=== PATIENT | male | born 1990 | race Caucasian/White ===

== ENCOUNTER 2018-11-02 18:32 | Emergency (ER) | payer SELFPAY ==
[2018-11-02 18:42] VITALS: BP 125/67
[2018-11-02] MEDS ORDERED: LIDOCAINE HCL 1%/EPI. (1:100,000) MDV 20ML VIAL IJ ONE (18:49)
--- NOTE | 2018-11-02 18:50 | ED Physician Documentation ---
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 pt presents to the ED via POV c/o Right buttock abscess. pain is worse when sitting. 10 aching. denies fever or other symptoms or complaints. pt denies current chest pain, dyspnea, syncope/near syncope, headache, dizziness, visual disturbances, n/v/d, fever/chills, rash, sick contacts, dysuria, trauma. melena or hematochezia, bleeding or easy bruising, change in bowel or bladder function. anxiety or depression. ROS Negative unless otherwise specified. Onset: days ago (3), other Location: other (Left buttock medial. ) Quality: painful - ROS CONST: none. denies: recent illness, fever, sweating, chills CVS/RESP: denies: chest pain, shortness of breath, cough EYES/ENT: denies: eye redness, eye itching, sore throat, nasal drainage GI/: denies: abdominal pain, problems urinating, vomiting, nausea MS/SKIN/LYMPH: denies: calf pain, neck pain, joint pain, leg swelling, rash, swollen glands, leg pain, back pain, ankle swelling NEURO/PSYCH: denies: headache, fainting, dizziness, tingling, numbness, anxiety - PAST HX Past History: none Other History: none Surgeries/Procedures: No Allergies/Adverse Reactions: Allergies Allergy/AdvReac Type Severity Reaction Status Date / Time No Known Allergies Allergy Verified 11/02/18 18:43 Home Medications: Ambulatory Orders Medication Instructions Recorded NK 09/10/13 - SOCIAL HX Smoking History: greater than 1 pack/day Alcohol Use: none Drug Use: none - FAMILY HX Family History: none - VITAL SIGNS Vital Signs: Vital Signs Temp Pulse Resp BP Pulse Ox 97.8 F 100 H 16 125/67 100 11/02/18 18:40 11/02/18 18:40 11/02/18 18:40 11/02/18 18:40 11/02/18 18:40 - REVIEWED ASSESSMENTS Nursing Assessment Reviewed: Yes Vitals Reviewed: Yes Procedures Site: right buttock Blade Size: 11 I & D Procedure: betadine prep, sterile drapes applied, sterile dressing applied, gauze wick placed Progress: Verbal consent obtained. 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 Type: abscess Location details: Right Buttock Anesthesia: local infiltration Local anesthetic: lidocaine 1% with epinephrine Anesthetic total: 7 ml Patient sedated: no Scalpel size: 11 Incision type: single straight 1.5 cm Complexity: simple Drainage: purulent Drainage amount: moderate Wound treatment: packed Packing material: iodaform secured with tape externally Patient tolerance: Patient tolerated the procedure well with no complications. Advised pt to have wound closely monitored and follow up with provider next week for recheck or before if needed. understanding verbalized. ED Results Lab/Radiology - Orders Orders: ED Orders Category Date Time Status Lidocaine 1%/Epinephrine [Xylocaine 1%-EPI 1:100,000] Med 11/02/18 18:49 Once 5 ml IJ NOW ONE Abscess Physical Exam - EXAM General Appearance: no acute distress, alert Skin: warm,dry, tender indurated area (4 cm x 2 cm ). No: pointing fluctuant with erythema, pointing fluctuant with lymphangitis Location: other (Right medial upper external buttock. no contact with anus. ) Character: symmetric, linear, erythematous Symptoms: warmth, tenderness, swelling, induration Extremities: non-tender EENT: eyes nml inspection, lips nml, gums nml, pharynx nml Neck: trachea midline, no swelling Respiratory: no resp distress Neuro/Psych: oriented x3, motor nml, sensation nml, mood/affect nml Discharge Clincal Impression: Abscess Additional Instructions: doxycycline 100 mg twice a day for 10 days. Tylenol/ibuprofen for pain. keep clean and dry, do not scrub. do not soak in tub Follow up with primary care next week for recheck. It is important that this gets monitored closely. Monitor and seek care if fever, chills, increasing swelling, pain, or any concern. PLEASE UNDERSTAND THAT THIS IS AN EMERGENCY EVALUATION FOR YOUR COMPLAINT AND BY NATURE IS LIMITED AND NOT A SUBSTITUTE FOR ONGOING MEDICAL CARE. EVEN THOUGH TEST RESULTS AND TREATMENT PLAN WERE EXPLAINED THERE MAY BE A NEED FOR ADDITIONAL TESTING TO FULLY DETERMINE THE EXTENT OF YOUR ILLNESS/INJURY/OR CONCERN SO YOU SHOULD CONTACT AND OR ESTABLISH WITH A PRIMARY CARE PROVIDER (OR REFERRAL DOCTOR IF APPLICABLE) FOR AN APPOINTMENT SOON POSSIBLE Condition: Good Disposition: 01 HOME, SELF-CARE Decision to Admit: NO Date of Decison to Admit: 11/02/18 Decision Time: 19:34
[2018-11-02] MEDS ORDERED: DOXYCYCLINE 100 MG CAPSULE PO ONE (19:34)
[2018-11-02] MEDS ORDERED: HYDROcodone /APAP 5/325 1 EACH TABLET PO ONE (19:35)
== END 2018-11-02 19:57 | disposition home or self-care (01) ==
LOC: ED 18:32
DX: L02.31 Cutaneous abscess of buttock (principal); B96.89 Other specified bacterial agents as the cause of diseases classified elsewhere
CPT/HCPCS: 10061; 87070; 99283; A9270

== ENCOUNTER 2019-11-10 18:06 | Emergency (ER) | payer SELFPAY ==
--- NOTE | 2019-11-10 18:55 | ED Physician Documentation ---
General Adult - HISTORIAN Historian: patient - HPI Chief Complaint: General Adult Onset: days ago (7-10 days) Timing: worse Further Comments: yes (29 year old male patient presents with low back pain for the past 10 days. Has been taking tylenol "like candy" and using THC for pain. After further review of history, patient reports drainage and "bump" on his coccyx.) - ROS CONST: no problems EYES/ENT: none CVS/RESP: none GI/: none MS/SKIN/LYMPH: none NEURO/PSYCH: denies: headache - PAST HX Past History: other (previous pilonidial cyst) Allergies/Adverse Reactions: Allergies Allergy/AdvReac Type Severity Reaction Status Date / Time No Known Allergies Allergy Verified 11/10/19 18:31 Home Medications: Ambulatory Orders Medication Instructions Recorded Sulfamethoxazole/Trimethoprim 1 each PO BID #20 tab 11/10/19 [Bactrim Ds] - SOCIAL HX Smoking History: cigarettes Drug Use: marijuana - FAMILY HX Family History: No - VITAL SIGNS Vital Signs: Vital Signs Temp Pulse Resp BP Pulse Ox 125/67 11/02/18 19:57 - REVIEWED ASSESSMENTS Nursing Assessment Reviewed: Yes Vitals Reviewed: Yes Progress - Progress Progress: Recurrent pilonidal cyst. Patient with low grade fever and tachycardia. I nstructed to clean BID with hibiclens. Instructed patient to make appointment with surgeon for drainage. General Adult Physical Exam - PHYSICAL EXAM GENERAL APPEARANCE: very poor personal hygiene EENT: eye inspection normal, SUE RESPIRATORY: no resp distress CVS: tachycardia ABDOMEN: soft BACK: normal inspection, no CVA tenderness, other (pilonidial cyst with erythema and scant drainage noted. 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 This will need to be surgically fixed. Clean the area twice a day with the hibiclens soap and water. Trim the excess hair from the area. Call and make an appointment with the surgeon of your choice: [facility]: [facility] Limit your tylenol to 650-1000mg every 4 hours (no more than 4000mg/24 hours) Condition: Stable Disposition: 01 HOME, SELF-CARE Decision to Admit: NO Decision Time: 18:58
[2019-11-10 19:02] VITALS: BP 127/79
== END 2019-11-10 19:04 | disposition home or self-care (01) ==
LOC: ED 18:06
DX: L05.91 Pilonidal cyst without abscess (principal); L72.11 Pilar cyst
CPT/HCPCS: 99281; 99283